=== PATIENT | female | born 1985 | race Caucasian/White ===

== ENCOUNTER 2020-12-31 03:09 | Emergency (ER) | payer OTHER ==
--- NOTE | 2020-12-31 03:44 | ED ---
Recheck HPI - General Chief Complaint: Recheck/Abnormal Lab/Rx Stated Complaint: recheck Time Seen by Provider: 12/31/20 03:40 Source: patient Mode of arrival: wheelchair Limitations: no limitations - Related Data Home Medications Medication Instructions Recorded Confirmed Pnv,Calcium 72/Iron/Folic Acid 1 each PO DAILY 12/31/20 12/31/20 [ Plus Tablet] Allergies Allergy/AdvReac Type Severity Reaction Status Date / Time No Known Allergies Allergy Verified 12/31/20 03:16 Review of Systems ROS Statement: Those systems with pertinent positive or pertinent negative responses have been documented in the HPI. ROS Other: All systems not noted in ROS Statement are negative. Past Medical History Additional Past Medical History / Comment(s): Hep C History of Any Multi-Drug Resistant Organisms: MRSA Date of last positivie culture/infection: 2009 MDRO Source:: left hip Past Surgical History: No Surgical Hx Reported Past Psychological History: Bipolar Smoking Status: Current every day smoker Past Alcohol Use History: None Reported Past Drug Use History: Cocaine, Heroin, Marijuana, Methamphetamine, Prescription Drug Abuse General Exam Limitations: no limitations Course Vital Signs 12/31/20 03:10 Temperature 97.7 F Pulse Rate 81 Respiratory 16 Rate Blood Pressure 115/74 O2 Sat by Pulse 100 Oximetry Disposition Clinical Impression: Methamphetamine abuse, Disposition: HOME SELF-CARE Condition: Fair Instructions (If sedation given, give patient instructions): (ED), Methamphetamine Abuse (ED) Is patient prescribed a controlled substance at d/c from ED?: No Referrals: None,Stated [Primary Care Provider] - 1-2 days
[2020-12-31 06:37] VITALS: BP 112/68; PULSE 64; RESP 15; TEMP 98.1
== END 2020-12-31 07:03 | disposition home or self-care (01) ==
LOC: EC 03:09
DX: O99.320 Drug use complicating pregnancy, unspecified trimester (principal); F15.10 Other stimulant abuse, uncomplicated; O99.330 Smoking (tobacco) complicating pregnancy, unspecified trimester; O99.340 Other mental disorders complicating pregnancy, unspecified trimester; F17.200 Nicotine dependence, unspecified, uncomplicated; F14.90 Cocaine use, unspecified, uncomplicated; F12.90 Cannabis use, unspecified, uncomplicated; O09.519 Supervision of elderly primigravida, unspecified trimester; F31.9 Bipolar disorder, unspecified; Z3A.00 Weeks of gestation of pregnancy not specified
CPT/HCPCS: 99281